=== PATIENT | male | born 1955 | race Caucasian/White ===

== ENCOUNTER 2021-11-02 17:18 | Inpatient (IN) | payer MEDICARE, OTHER ==
[2021-11-02] MEDS ORDERED: Norepinephrine 8 MG/0.9% NS 250 ML ONE (17:19)
[2021-11-02 18:06] LABS: #Basophils 0.1 10x3/uL (0.0-0.2); #Eosinphils 0.2 10x3/uL (0.0-0.5); #Monocytes 0.9 10x3/uL (0.0-1.1); #Neutrophils 12.1 10x3/uL (1.5-8.4); %Basophils 0.4 % (0.0-2.0); %Eosinophils 1.2 % (0.0-6.0); %Monocytes 5.8 % (0.0-10.0); Hemoglobin 6.9 g/dL (13.5-17.5); Mean Corpuscular HGB CONC 31.2 g/dL (32.0-36.0); Mean Corpuscular Hemoglobin 27.7 pg (27.0-33.0); Mean Corpuscular Volume 88.8 fl (81.2-95.1); Mean Platelet Volume 12.2 fl (7.4-10.4); Platelet Count 292 10x3/uL (150-450); RBC Distribution Width 19.5 % (11.5-14.5); Red Blood Cell (RBC) Count 2.49 10x6/uL (4.32-5.72); White Blood Cell (WBC) Count 14.7 10x3/uL (3.5-10.5)
[2021-11-02 18:11] LABS: INR-International Normal Ratio 1.9; PTT 31.3 sec (22.0-33.0); Prothrombin Time 20.3 sec (9.5-12.1)
[2021-11-02 18:16] LABS: SARS-CoV-2 NAA Rapid Test Not Detected (NotDetected)
[2021-11-02 18:42] LABS: Troponin I 0.029 ng/mL (< 0.028)
[2021-11-02] MEDS: Sodium Chloride 0.9% 1,000 ML IV SCH (19:47)
[2021-11-02] MEDS ORDERED: Dextrose 50% Abboject 50 ML SYRINGE SLOW IVP PRN (20:44)
[2021-11-02] MEDS ORDERED: HumaLOG 300 UNITS/3 ML VIAL SC PRN (20:44)
[2021-11-02] MEDS ORDERED: Dextrose 5% in Water 1,000 ML IV PRN (20:44)
[2021-11-02 21:32] LABS: #Basophils 0.1 10x3/uL (0.0-0.2); #Eosinphils 0.3 10x3/uL (0.0-0.5); #Monocytes 0.7 10x3/uL (0.0-1.1); %Basophils 0.6 % (0.0-2.0); %Eosinophils 2.2 % (0.0-6.0); %Monocytes 5.6 % (0.0-10.0); %Neutrophils 76.2 % (40.0-75.0); Hemoglobin 7.9 g/dL (13.5-17.5); Mean Corpuscular HGB CONC 32.8 g/dL (32.0-36.0); Mean Corpuscular Volume 85.5 fl (81.2-95.1); Mean Platelet Volume 11.2 fl (7.4-10.4); Platelet Count 255 10x3/uL (150-450); RBC Distribution Width 18.6 % (11.5-14.5); Red Blood Cell (RBC) Count 2.82 10x6/uL (4.32-5.72); White Blood Cell (WBC) Count 13.1 10x3/uL (3.5-10.5)
[2021-11-02] MEDS: Pantoprazole 40 MG VIAL IVP SCH (21:36)
[2021-11-02] MEDS: Gabapentin 300 MG CAP PO SCH (21:36)
[2021-11-02] MEDS: Flecainide 50 MG TAB PO SCH (21:36)
[2021-11-02] MEDS: Atorvastatin Calcium 20 MG TAB PO SCH (21:36)
[2021-11-03 04:28] LABS: #Basophils 0.1 10x3/uL (0.0-0.2); #Eosinphils 0.5 10x3/uL (0.0-0.5); #Monocytes 0.7 10x3/uL (0.0-1.1); #Neutrophils 7.1 10x3/uL (1.5-8.4); %Basophils 0.5 % (0.0-2.0); %Eosinophils 4.9 % (0.0-6.0); %Lymphocytes 19.8 % (18.0-47.0); %Monocytes 6.7 % (0.0-10.0); %Neutrophils 67.7 % (40.0-75.0); Hemoglobin 7.7 g/dL (13.5-17.5); Mean Corpuscular HGB CONC 32.9 g/dL (32.0-36.0); Mean Corpuscular Hemoglobin 28.4 pg (27.0-33.0); Mean Corpuscular Volume 86.3 fl (81.2-95.1); Mean Platelet Volume 11.2 fl (7.4-10.4); Platelet Count 205 10x3/uL (150-450); RBC Distribution Width 19.1 % (11.5-14.5); Red Blood Cell (RBC) Count 2.71 10x6/uL (4.32-5.72); White Blood Cell (WBC) Count 10.6 10x3/uL (3.5-10.5)
[2021-11-03 04:35] LABS: INR-International Normal Ratio 1.3; PTT 23.9 sec (22.0-33.0); Prothrombin Time 13.9 sec (9.5-12.1)
[2021-11-03 04:41] LABS: ALT (SGPT) 10 U/L (8-55); AST (SGOT) 9 U/L (5-34); Albumin 3.3 g/dL (3.4-4.8); Alkaline Phosphatase 78 U/L (40-110); Anion Gap 11 mmol/L (10-20); BUN (Urea Nitrogen) 50 mg/dL (8.4-25.7); Bilirubin, Total 0.7 mg/dL (0.2-1.2); Calc. Creatinine Clearance 198 mL/min (70-130); Calcium 8.8 mg/dL (7.8-10.44); Carbon Dioxide 24 mmol/L (23-31); Chloride 106 mmol/L (98-107); Estimated GFR 101; Globulin 2.8 g/dL (2.4-3.5); Glucose 169 mg/dL (80-115); Protein, Total 6.1 g/dL (5.8-8.1); Sodium 136 mmol/L (136-145)
[2021-11-03] MEDS: Pantoprazole 40 MG VIAL IVP SCH (08:50)
[2021-11-03] MEDS: Sodium Chloride 0.9% 1,000 ML IV SCH (08:50)
[2021-11-03] MEDS: DULoxetine 30 MG CAP PO SCH (09:07)
[2021-11-03] MEDS: Allopurinol 300 MG TAB PO SCH (09:07)
[2021-11-03] MEDS: Flecainide 50 MG TAB PO SCH ×2 (09:07→20:26)
[2021-11-03] MEDS: Gabapentin 300 MG CAP PO SCH ×2 (09:07→20:24)
[2021-11-03] MEDS ORDERED: PROPOFOL 20 ML ONE (12:54)
[2021-11-03] MEDS ORDERED: Midazolam HCl 2 mg/2 ml Vial ONE (12:55)
[2021-11-03] MEDS ORDERED: Lidocaine 4% PF 5 ML AMP ONE (12:55)
[2021-11-03 16:07] LABS: Hemoglobin 8.8 g/dL (13.5-17.5)
[2021-11-03 19:05] LABS: INR-International Normal Ratio 1.1; PTT 26.6 sec (22.0-33.0); Prothrombin Time 11.9 sec (9.5-12.1)
[2021-11-03] MEDS: Atorvastatin Calcium 20 MG TAB PO SCH (20:24)
[2021-11-04 04:27] LABS: #Eosinphils 0.5 10x3/uL (0.0-0.5); #Monocytes 0.6 10x3/uL (0.0-1.1); #Neutrophils 4.9 10x3/uL (1.5-8.4); %Basophils 0.5 % (0.0-2.0); %Eosinophils 6.2 % (0.0-6.0); %Lymphocytes 20.7 % (18.0-47.0); %Monocytes 7.5 % (0.0-10.0); %Neutrophils 64.8 % (40.0-75.0); Hemoglobin 8.5 g/dL (13.5-17.5); Mean Corpuscular HGB CONC 32.1 g/dL (32.0-36.0); Mean Corpuscular Hemoglobin 28.1 pg (27.0-33.0); Mean Corpuscular Volume 87.7 fl (81.2-95.1); Platelet Count 188 10x3/uL (150-450); RBC Distribution Width 18.6 % (11.5-14.5); Red Blood Cell (RBC) Count 3.02 10x6/uL (4.32-5.72); White Blood Cell (WBC) Count 7.6 10x3/uL (3.5-10.5)
[2021-11-04 04:28] LABS: Anion Gap 9 mmol/L (10-20); BUN (Urea Nitrogen) 34 mg/dL (8.4-25.7); Calc. Creatinine Clearance 138 mL/min (70-130); Calcium 8.6 mg/dL (7.8-10.44); Carbon Dioxide 25 mmol/L (23-31); Chloride 108 mmol/L (98-107); Estimated GFR 79; Glucose 110 mg/dL (80-115); Potassium 5.1 mmol/L (3.5-5.1); Sodium 137 mmol/L (136-145)
[2021-11-04] MEDS ORDERED: tiZANidine HCl 4 MG TAB PO PRN (08:23)
[2021-11-04] MEDS ORDERED: Anastrozole 1 MG TAB PO SCH (08:30)
[2021-11-04] MEDS: Gabapentin 300 MG CAP PO SCH ×2 (08:42→19:32)
[2021-11-04] MEDS: DULoxetine 30 MG CAP PO SCH (08:42)
[2021-11-04] MEDS: Allopurinol 300 MG TAB PO SCH (08:42)
[2021-11-04] MEDS: Flecainide 50 MG TAB PO SCH ×2 (08:43→19:32)
[2021-11-04] MEDS ORDERED: Enoxaparin Sodium 120 MG/0.8 ML SYRINGE SC SCH (09:15)
[2021-11-04] MEDS: Warfarin Sodium 7.5 MG TAB PO SCH (16:39)
[2021-11-04] MEDS: Atorvastatin Calcium 20 MG TAB PO SCH (19:32)
[2021-11-04] MEDS: Enoxaparin Sodium 120 MG/0.8 ML SYRINGE SC SCH (19:33)
[2021-11-04] MEDS ORDERED: metFORMIN 500 MG TAB PO SCH (21:00)
[2021-11-05 05:08] VITALS: BMI 40.5
[2021-11-05 05:18] LABS: INR-International Normal Ratio 1.1; Prothrombin Time 11.9 sec (9.5-12.1)
[2021-11-05] MEDS: DULoxetine 30 MG CAP PO SCH (09:10)
[2021-11-05] MEDS: Allopurinol 300 MG TAB PO SCH (09:11)
[2021-11-05] MEDS: metFORMIN 500 MG TAB PO SCH ×2 (09:11→20:42)
[2021-11-05] MEDS: Flecainide 50 MG TAB PO SCH ×2 (09:11→20:41)
[2021-11-05] MEDS: Gabapentin 300 MG CAP PO SCH ×2 (09:11→20:42)
[2021-11-05] MEDS: Enoxaparin Sodium 120 MG/0.8 ML SYRINGE SC SCH ×2 (09:11→20:44)
[2021-11-05] MEDS: Warfarin Sodium 7.5 MG TAB PO SCH (17:29)
[2021-11-05] MEDS: Atorvastatin Calcium 20 MG TAB PO SCH (20:41)
[2021-11-06 04:45] LABS: #Basophils 0.1 10x3/uL (0.0-0.2); #Eosinphils 0.3 10x3/uL (0.0-0.5); #Monocytes 0.5 10x3/uL (0.0-1.1); #Neutrophils 4.3 10x3/uL (1.5-8.4); %Basophils 0.7 % (0.0-2.0); %Eosinophils 4.9 % (0.0-6.0); %Lymphocytes 22.5 % (18.0-47.0); %Monocytes 7.5 % (0.0-10.0); %Neutrophils 64.1 % (40.0-75.0); Hemoglobin 8.2 g/dL (13.5-17.5); Mean Corpuscular HGB CONC 31.2 g/dL (32.0-36.0); Mean Corpuscular Volume 89.8 fl (81.2-95.1); Mean Platelet Volume 11.7 fl (7.4-10.4); Platelet Count 189 10x3/uL (150-450); RBC Distribution Width 17.9 % (11.5-14.5); Red Blood Cell (RBC) Count 2.93 10x6/uL (4.32-5.72); White Blood Cell (WBC) Count 6.7 10x3/uL (3.5-10.5)
[2021-11-06 05:13] LABS: Anion Gap 12 mmol/L (10-20); BUN (Urea Nitrogen) 19 mg/dL (8.4-25.7); Calc. Creatinine Clearance 158 mL/min (70-130); Calcium 8.7 mg/dL (7.8-10.44); Carbon Dioxide 21 mmol/L (23-31); Chloride 107 mmol/L (98-107); Estimated GFR 93; Glucose 97 mg/dL (80-115); Potassium 4.4 mmol/L (3.5-5.1); Sodium 136 mmol/L (136-145)
[2021-11-06 05:38] LABS: INR-International Normal Ratio 1.1; Prothrombin Time 12.3 sec (9.5-12.1)
[2021-11-06] MEDS: Enoxaparin Sodium 120 MG/0.8 ML SYRINGE SC SCH (09:38)
[2021-11-06] MEDS: Gabapentin 300 MG CAP PO SCH (09:39)
[2021-11-06] MEDS: Flecainide 50 MG TAB PO SCH (09:40)
[2021-11-06] MEDS: DULoxetine 30 MG CAP PO SCH (09:40)
[2021-11-06] MEDS: Allopurinol 300 MG TAB PO SCH (09:40)
[2021-11-06] MEDS: metFORMIN 500 MG TAB PO SCH (09:40)
[2021-11-06 11:47] VITALS: BP 136/67; TEMP 97.7
== END 2021-11-06 14:15 | disposition home or self-care (01) | DRG 377 ==
LOC: CSHERS 17:18 → CSHICU 18:35 → CSHTELE 11-05 07:34
PROVIDERS: ADMIT Internal Medicine; ATTEND Internal Medicine
PROC: 3E033XZ Introduction of Vasopressor into Peripheral Vein, Percutaneous Approach (ICD-10-PCS; principal; 2021-11-02)
PROC: 30233N1 Transfusion of Nonautologous Red Blood Cells into Peripheral Vein, Percutaneous Approach (ICD-10-PCS; 2021-11-02)
PROC: 0DB68ZX Excision of Stomach, Via Natural or Artificial Opening Endoscopic, Diagnostic (ICD-10-PCS; 2021-11-03)
DX: K25.4 Chronic or unspecified gastric ulcer with hemorrhage (principal); R57.1 Hypovolemic shock; D62 Acute posthemorrhagic anemia; Z68.41 Body mass index [BMI] 40.0-44.9, adult; Z20.822 Contact with and (suspected) exposure to COVID-19; G89.29 Other chronic pain; M54.50 Low back pain, unspecified; E11.9 Type 2 diabetes mellitus without complications; I10 Essential (primary) hypertension; E66.9 Obesity, unspecified; M10.9 Gout, unspecified; F44.4 Conversion disorder with motor symptom or deficit; E78.2 Mixed hyperlipidemia; F32.A Depression, unspecified; T39.395A Adverse effect of other nonsteroidal anti-inflammatory drugs [NSAID], initial encounter; E78.00 Pure hypercholesterolemia, unspecified; I48.91 Unspecified atrial fibrillation; Z79.01 Long term (current) use of anticoagulants; Z99.3 Dependence on wheelchair; Z95.2 Presence of prosthetic heart valve; Z79.899 Other long term (current) drug therapy; Z79.82 Long term (current) use of aspirin; Z79.84 Long term (current) use of oral hypoglycemic drugs; Z87.442 Personal history of urinary calculi; Z82.49 Family history of ischemic heart disease and other diseases of the circulatory system; Z82.3 Family history of stroke; Z98.1 Arthrodesis status
CPT/HCPCS: 36415; 36416; 36430; 80048; 80053; 84484; 85025; 85610; 85730; 86850; 86900; 86901; 88305; 88342; 93005; 93010; 94760; 96365; C9113; J1650; J2250; J2704; J7050; P9016; U0002